=== PATIENT | male | born 1970 | race Caucasian/White ===

== ENCOUNTER 2022-05-13 10:07 | Observation (INO) | payer BC ==
[~2022-05-13] VITALS: Ht 172.7 cm; Wt 94.8 kg
--- NOTE | 2022-05-13 10:07 | NUR ---
PT BIBA TO BED 01.
[2022-05-13 10:11] VITALS: BP 111/73
--- NOTE | 2022-05-13 10:17 | NUR ---
52/M BIBA FROM [facility]CHOOL C/O NVD AND NEAR SYNCOPE ONSET 1 HR AGO. PT STATES NEGATIVE LOC. EMS REPORTS PATIENT WAS DIAPHORETIC AND PALE AT SCENE BUT MUCH BETTER NOW. PT ALSO C/O DIZZINESS. DENIES SOB OR CP. AAOX4, AMBULATORY, ON MONITOR. PMH: VITO MARTIN
[2022-05-13] MEDS ORDERED: ONDANSETRON 4 MG/2 ML VIAL ONE (10:24)
[2022-05-13] MEDS ORDERED: ONDANSETRON 4 MG/2 ML VIAL IVP ONE (10:25)
[2022-05-13] MEDS ORDERED: NACL 0.9% 1,000 ML IV ONE ×3 (10:25→14:15)
[2022-05-13 11:35] LABS: BASOPHILS % (AUTO) 0.2 % (0.0-2.0); EOSINOPHILS % (AUTO) 0.4 % (0.0-4.0); HEMATOCRIT 40.9 % (36-52); HEMOGLOBIN 13.4 g/dL (12.0-18.0); LYMPHOCYTES # (AUTO) 0.3 K/uL (2.0-11.5); LYMPHOCYTES % (AUTO) 3.5 % (20.5-51.1); MEAN CORPUSCULAR HEMOGLOBIN 29 pg (27-31); MEAN CORPUSCULAR HGB CONC 33 g/dL (33-37); MEAN CORPUSCULAR VOLUME 87.1 fL (80-94); MONOCYTES # (AUTO) 0.5 K/uL (0.8-1.0); MONOCYTES % (AUTO) 5.5 % (1.7-9.3); NEUTROPHILS # (AUTO) 8.8 K/uL (1.8-7.7); NEUTROPHILS % (AUTO) 90.4 % (42.2-75.2); PLATELET COUNT (AUTO) 203 K/uL (140-450); RED CELL DISTRIBUTION WIDTH 14.5 % (11.6-13.7); WHITE BLOOD COUNT (AUTO) 9.7 K/uL (4.8-10.8)
--- NOTE | 2022-05-13 12:00 | NUR ---
AMBULATED TO RESTROOM. URINE COLLECTED
[2022-05-13 12:03] LABS: ALBUMIN 3.5 g/dL (3.4-5.0); ANION GAP 17.2 (8-16); CARBON DIOXIDE 23.6 mmol/L (21-32); POTASSIUM 4.8 mmol/L (3.5-5.1); TOTAL BILIRUBIN 0.4 mg/dL (0.0-1.0)
--- NOTE | 2022-05-13 14:00 | NUR ---
PATIENT CONTINUES TO BE TACHY. ERMD MADE AWARE
[2022-05-13] MEDS ORDERED: MAGNESIUM OXIDE 400 MG TAB PO PRN (16:45)
[2022-05-13] MEDS ORDERED: DEXTROSE 50% 50 ML SYR IVP PRN (16:45)
[2022-05-13] MEDS ORDERED: ONDANSETRON 4 MG/2 ML VIAL IVP PRN (16:45)
[2022-05-13] MEDS ORDERED: KCL 20 MEQ/WATER INJ PREMIX 200 ML IV PRN (16:45)
[2022-05-13] MEDS ORDERED: ACETAMINOPHEN 325 MG TAB PO PRN (16:45)
[2022-05-13] MEDS ORDERED: POTASSIUM CHLORIDE 10 MEQ TABER PO PRN (16:45)
[2022-05-13] MEDS ORDERED: MAG SULF 2000 MG/WATER PREMIX 50 ML IV PRN (16:45)
[2022-05-13] MEDS ORDERED: MORPHINE SULFATE 4 MG/ML SYR IVP PRN (16:45)
[2022-05-13] MEDS ORDERED: HYDROcodone/APAP 5/325 MG 1 TAB TAB PO PRN (16:45)
[2022-05-13] MEDS: NACL 0.9% 1,000 ML IV SCH (17:20)
[2022-05-13 18:02] LABS: APPEARANCE,URINE CLEAR (CLEAR); BILIRUBIN,URINE NEGATIVE (NEGATIVE); BLOOD, URINE NEGATIVE (NEGATIVE); COLOR,URINE YELLOW (YELLOW); LEUKOCYTE ESTERASE ,URINE NEGATIVE (NEGATIVE); NITRITE, URINE NEGATIVE (NEGATIVE); PH,URINE 5.5 (5.0-9.0); UGLUCOSE 3+ (NEGATIVE)
[2022-05-13] MEDS ORDERED: LOSA100T1 PO (19:01)
[2022-05-13] MEDS ORDERED: SIMV40TA1 PO (19:01)
[2022-05-13] MEDS ORDERED: GABA300C PO (19:01)
[2022-05-13] MEDS ORDERED: METF-350 PO (19:01)
[2022-05-13] MEDS ORDERED: OMEP-303 PO (19:01)
[2022-05-13] MEDS ORDERED: SERT25TA PO (19:01)
[2022-05-13] MEDS ORDERED: INSU100S5 IJ (19:01)
[2022-05-13] MEDS ORDERED: DAPA5TAB PO (19:01)
--- NOTE | 2022-05-13 19:30 | NUR ---
AMBULATING IN [facility] IN [facility].
--- NOTE | 2022-05-13 19:40 | NUR ---
TO 105B VIA GURNEY ATTACHED TO CM ACCOMPANIED BY RN AND ERT. REPORT GIVEN
[2022-05-13 20:00] VITALS: BP 112/62
--- NOTE | 2022-05-13 20:00 | NUR ---
PT ARRIVED TO [facility]. AMBULATORY. RECEIVED REPORT FORM ED NURSE. NO S/S OF DISTRESS. CALL LIGHT IN REACH. ALL SAFETY MEASURES IN PLACE. ORIENTED TO ROOM.
[2022-05-13] MEDS: BLOOD GLUCOSE MONITORING 1 DEV DEV FS SCH (21:30)
[2022-05-13] MEDS: INSULIN LISPRO SLIDING SCALE 100 UNITS/ML VIAL SUBQ PRN (21:30)
--- NOTE | 2022-05-13 23:54 | NUR ---
PT RESTING IN BED, EYES CLOSED. NO S/S OF DISTRESS. CALL LIGHT IN REACH. ALL SAFETY MEASURES IN PLACE. IV FLUIDS RUNNING PER MD ORDER
[2022-05-14] VITALS: BP 92/58
--- NOTE | 2022-05-14 02:45 | NUR ---
PT RESTING IN BED, EYES CLOSED. NO S/S OF DISTRESS. IV FLUIDS RUNNING PER MD ORDER. CALL LIGHT IN REACH. ALL SAFETY MEASURES IN PLACE
[2022-05-14 04:00] VITALS: BP 105/66
[2022-05-14] MEDS: NACL 0.9% 1,000 ML IV SCH (05:15)
[2022-05-14 05:50] LABS: BASOPHILS % (AUTO) 0.2 % (0.0-2.0); EOSINOPHILS # (AUTO) 0.3 K/uL (0-0.4); EOSINOPHILS % (AUTO) 2.2 % (0.0-4.0); HEMATOCRIT 30.4 % (36-52); HEMOGLOBIN 10.2 g/dL (12.0-18.0); LYMPHOCYTES # (AUTO) 1.1 K/uL (2.0-11.5); LYMPHOCYTES % (AUTO) 8.5 % (20.5-51.1); MEAN CORPUSCULAR HEMOGLOBIN 29 pg (27-31); MEAN CORPUSCULAR HGB CONC 34 g/dL (33-37); MEAN CORPUSCULAR VOLUME 85.3 fL (80-94); NEUTROPHILS # (AUTO) 10.2 K/uL (1.8-7.7); NEUTROPHILS % (AUTO) 81.1 % (42.2-75.2); PLATELET COUNT (AUTO) 185 K/uL (140-450); RED BLOOD CELL COUNT(AUTO) 3.57 MIL/uL (4.20-6.10); RED CELL DISTRIBUTION WIDTH 14.3 % (11.6-13.7); WHITE BLOOD COUNT (AUTO) 12.6 K/uL (4.8-10.8)
[2022-05-14 06:27] LABS: ALBUMIN 2.7 g/dL (3.4-5.0); CARBON DIOXIDE 22.8 mmol/L (21-32); CREATININE 1.9 mg/dL (0.6-1.3); MAGNESIUM 1.6 mg/dL (1.8-2.4); POTASSIUM 3.8 mmol/L (3.5-5.1); TOTAL BILIRUBIN 0.4 mg/dL (0.0-1.0)
[2022-05-14] MEDS: BLOOD GLUCOSE MONITORING 1 DEV DEV FS SCH ×3 (06:43→11:29)
--- NOTE | 2022-05-14 06:52 | NUR ---
PT BG 126, NO COVERAGE NEEDED. IV RUNNING PER MD ORDER. NO S/S OF DISTRESS. CALL LIGHT IN REACH. ALL SAFETY MEASURES IN PLACE
--- NOTE | 2022-05-14 07:35 | NUR ---
ENDORSED PT TO DAYSHIFT NURSE. NO S/S OF DISTRESS. CALL LIGHT IN REACH. ALL SAFETY MEASURES IN PLACE. IV FLUIDS RUNNING PER MD ORDER
--- NOTE | 2022-05-14 07:35 | NUR ---
got report from the night nurse, pt awake, no sob discussed [email or web address]
[2022-05-14 08:00] VITALS: BP 109/55
--- NOTE | 2022-05-14 09:03 | NUR ---
PATIENT HAS BEEN SCREENED AND CATEGORIZED MODERATE NUTRITION RISK. PATIENT WILL BE SEEN WITHIN 3-5 DAYS OF ADMISSION. 05/14/22-05/18/[address]
[2022-05-14] MEDS: INSULIN LISPRO SLIDING SCALE 100 UNITS/ML VIAL SUBQ PRN (11:32)
[2022-05-14 12:00] VITALS: BP 112/61
[2022-05-14 14:35] VITALS: BP 112/61
--- NOTE | 2022-05-14 14:58 | NUR ---
DC PLANNING SW MET WITH PATIENT AT BEDSIDE TO COMPLETE ASSESSMENT. PATIENT REPORTS RESIDING AT HOME WITH HIS . PATIENT IDENTIFIES [facility] (SPOUSE) [phone] EMERGENCY CONTACT AND MDM. PATIENT REPORTS MEETING WITH PCP, NEEDED. PATIENT REPORTS LAST VISIT 6 MONTHS. PATIENT REPORTS MEDICATION COMPLIANCE AND DENIES BARRIERS IN ACCESSING MEDICATION NEEDED. PATIENT REPORTS PICKING UP MEDICATION FROM [facility] [address] [facility], WHEN NEEDED. PATIENT REPORTS BEING INDEPENDENT IN ALL ACTIVITIES AND DENIES USE OF DME. PATIENT REPORTS MENTAL HEALTH HX OF ANXIETY, PATIENT HAS PREVIOUSLY MET WITH A THERAPIST, HOWEVER NO LONGER MEETS WITH THERAPIST. SW OFFERED MENTAL HEALTH RESOURCES, PATIENT DECLINED. PATIENT DENIES SA HX. DC PLAN IS FOR PATIENT TO RETURN HOME WITH PROVIDING TRANSPORTATION AND AIDING IN CARE, IF REQUIRED.
[2022-05-14] MEDS ORDERED: SIMVASTATIN 10 MG TAB PO SCH (21:00)
[2022-05-14] MEDS ORDERED: SIMVASTATIN 40 MG TAB PO SCH ×2 (21:00)
[2022-05-15] MEDS ORDERED: LOSARTAN 50 MG TAB PO SCH (09:00)
[2022-05-15] MEDS ORDERED: SERTRALINE 50 MG TAB PO SCH (09:00)
[2022-05-15] MEDS ORDERED: GABAPENTIN 300 MG CAP PO SCH (09:00)
--- NOTE | 2022-05-18 08:51 | NUR ---
LATE ENTRY- IV NORMAL SALINE DISCONTINUED AT 1930.
== END 2022-05-14 16:18 | disposition home or self-care (01) ==
LOC: MED 10:07 → MTU 16:41
PROVIDERS: ADMIT Hospitalist; ATTEND Hospitalist
DX: K52.9 Noninfective gastroenteritis and colitis, unspecified (principal); Z20.822 Contact with and (suspected) exposure to COVID-19; I12.9 Hypertensive chronic kidney disease with stage 1 through stage 4 chronic kidney disease, or unspecified chronic kidney disease; E11.22 Type 2 diabetes mellitus with diabetic chronic kidney disease; N18.9 Chronic kidney disease, unspecified; E78.5 Hyperlipidemia, unspecified; E78.00 Pure hypercholesterolemia, unspecified; N17.9 Acute kidney failure, unspecified; E86.0 Dehydration; Z79.899 Other long term (current) drug therapy
CPT/HCPCS: 36415; 36600; 74176; 80053; 81003; 82009; 82803; 82948; 83735; 84484; 85025; 87081; 87086; 87426; 93005; 96361; 96372; 96374; 99285; G0378; J1815; J2405